=== PATIENT | male | born 1985 | race African-American/Black ===

== ENCOUNTER 2016-07-06 21:55 | Emergency (ER) | payer OTHER ==
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
[2016-07-06 23:28] VITALS: BP 141/73
== END 2016-07-06 23:25 | disposition home or self-care (01) ==
LOC: ER 21:55
DX: S69.91XA Unspecified injury of right wrist, hand and finger(s), initial encounter (principal); M25.531 Pain in right wrist; V87.7XXA Person injured in collision between other specified motor vehicles (traffic), initial encounter
CPT/HCPCS: 99284